=== PATIENT | female | born 1985 | race Asian ===

== ENCOUNTER 2019-08-11 20:42 | Emergency (ER) | payer SELFPAY ==
[2019-08-11] MEDS ORDERED: Ketorolac Tromethamine 30 MG/ML VIAL ONE (21:29)
[2019-08-11] MEDS ORDERED: metroNIDAZOLE 500 MG/100 ML BAG ONE ×2 (21:33→21:34)
[2019-08-11] MEDS ORDERED: Cefepime 1 GM VIAL ONE ×2 (21:33→21:34)
[2019-08-11] MEDS ORDERED: Sodium Chloride 0.9% 100 ML ONE (21:35)
[2019-08-11 21:43] LABS: BHCG - Serum Negative (NEGATIVE); Pregs Control Background? CLEAR/WHITE (CLR/WHITE); Pregs Control Bar Appear? YES (CONTROL BAR)
[2019-08-11 21:44] LABS: Hemoglobin 11.1 g/dL (12.0-16.0); Mean Corpuscular HGB CONC 32.4 g/dL (32.0-36.0); Mean Corpuscular Hemoglobin 26.6 pg (27.0-31.0); Mean Corpuscular Volume 82.2 fL (78.0-98.0); Mean Platelet Volume 8.3 fL (7.4-10.4); Platelet Count 268 thou/uL (130-400); Red Blood Cell (RBC) Count 4.16 mill/uL (4.20-5.40)
--- NOTE | 2019-08-11 21:46 | RAD ---
XR Chest Pa Lat STANDARD History: Fever. Comparison: None. Findings: The lungs are clear. No pneumothorax or effusion. Cardiac silhouette and mediastinal contou rs are within normal limits. No acute osseous abnormality. Impression: No acute intrathoracic abnormality.
[2019-08-11 21:49] LABS: Bilirubin Small (Negative); Blood, Urine Negative (Negative); Clarity Clear (Clear); Glucose, Urine (Dipstick) 100 mg/dL (Negative); Leukocyte Negative (Negative); Nitrite Positive (Negative); Protein, Urine (Dipstick) 100 mg/dL (Neg-Trace)
[2019-08-11 21:49] LABS: ALT (SGPT) 16 U/L (8-55); AST (SGOT) 15 U/L (5-34); Alkaline Phosphatase 76 U/L (40-110); Anion Gap 17 mmol/L (10-20); BUN (Urea Nitrogen) 6 mg/dL (7.0-18.7); Bilirubin, Total 0.5 mg/dL (0.2-1.2); Calc. Creatinine Clearance 0 mL/min (70-130); Calcium 9.2 mg/dL (7.8-10.44); Carbon Dioxide 23 mmol/L (22-29); Chloride 99 mmol/L (98-107); Estimated GFR-MDRD 81; Globulin 4.3 g/dL (2.4-3.5); Glucose 138 mg/dL (70-105); Potassium 3.4 mmol/L (3.5-5.1); Protein, Total 8.3 g/dL (6.0-8.3); Sodium 136 mmol/L (136-145)
[2019-08-11 21:56] LABS: RBC/HPF 0-3 HPF (0-3); Squamous Epithelial 0-3 HPF (0-3)
[2019-08-11 21:57] LABS: Bacteria/HPF 1+ HPF (None Seen)
[2019-08-11 22:07] LABS: Band 8 % (5-11); Eosinophils 1 % (0-10); Lymphocytes 8 % (21-51); MDiff Complete? YES; Microcytosis SLIGHT = 6-15 cells (100X) (0-5/hpf); Monocytes 6 % (0-10); Neutrophil 77 % (42-75); Platelet Morphology Comment Appears Adequate; Stomatocytes SLIGHT = 2-5 cells (100X) (0-1/hpf); Toxic Granulation SLIGHT
[2019-08-11 22:08] LABS: Lipase Less than 4 U/L (8-78)
--- NOTE | 2019-08-11 23:21 | ULT ---
US Abdominal History: Abdominal pain Comparison: None. Findings: Real-time grayscale and color evaluation of the abdomen was performed. Visualized portion of the aorta, IVC, and pancreas are unremarkable. Diffuse increased hepatic echote xture without mass. Portal vein is patent with antegrade flow. Liver measures 15.2 cm in length. Right kidney measures 11 x 5 x 4.6 cm without mass hydronephrosis or abnormal calcifications. Gallbla dder is normal. No pericholecystic fluid. Common bile duct is normal measuring 4 mm. Spleen measures 10.6 cm in length. Left kidney measures 11.5 x 5.2 x 5 cm with a round echogenic focu s interpolar region measuring 1.6 cm. Impression: 1. Diffuse increased hepatic echotexture suggesting steatosis. 2. Round focus of increased echotexture measuring 1.6 cm interpolar left renal cortex. This may refle ct an angiomyolipoma given patient age. Renal protocol CT or MRI can be performed in 6 months.
[2019-08-11] MEDS ORDERED: Acetaminophen 500 MG TAB ONE (23:38)
== END 2019-08-12 00:51 | disposition home or self-care (01) ==
LOC: SCSER 20:42
DX: R10.32 Left lower quadrant pain (principal); R50.9 Fever, unspecified; R11.10 Vomiting, unspecified; M54.9 Dorsalgia, unspecified
CPT/HCPCS: 71046; 76700; 80053; 81003; 81015; 83605; 83690; 84703; 85025; 87040; 87086; 96361; 96365; 96367; 96375; J0692; J1885; J3490